=== PATIENT | male | born 1955 ===

== ENCOUNTER 2018-12-10 08:20 | Day surgery (SDC) | payer BC ==
[~2018-12-10] VITALS: Ht 180.3 cm; Wt 74.3 kg
--- NOTE | 2018-12-10 09:45 | NUR ---
12/10/18 0945 Nargis Plascencia SIMETHICONE USED DURING PROCEDURE.
== END 2018-12-10 10:32 | disposition home or self-care (01) ==
LOC: ORSCSDS 08:20
PROVIDERS: Internal Medicine Gastroenterology
PROC: 0DBL8ZX Excision of Transverse Colon, Via Natural or Artificial Opening Endoscopic, Diagnostic (ICD-10-PCS; principal; 2018-12-10 09:30)
PROC: 0DBK8ZX Excision of Ascending Colon, Via Natural or Artificial Opening Endoscopic, Diagnostic (ICD-10-PCS; principal; 2018-12-10 09:30)
DX: K92.1 Melena (principal); D12.4 Benign neoplasm of descending colon; D12.3 Benign neoplasm of transverse colon; K64.8 Other hemorrhoids
CPT/HCPCS: 88305; J2704; J7120